=== PATIENT | female | born 1995 | race Caucasian/White ===

== ENCOUNTER 2024-03-28 22:38 | Inpatient (IN) | payer OTHER ==
[~2024-03-28] VITALS: Ht 157.5 cm; Wt 53.5 kg
[2024-03-28 22:50] VITALS: BP 116/61; PULSE 78; RESP 18; TEMP 98.1; O2SAT 100
[2024-03-28 23:36] VITALS: O2SAT 99
[2024-03-28 23:39] LABS: APPEARANCE,URINE CLEAR (CLEAR); BILIRUBIN,URINE NEGATIVE (NEGATIVE); BLOOD, URINE TRACE-I (NEGATIVE); COLOR,URINE YELLOW (YELLOW); LEUKOCYTE ESTERASE ,URINE TRACE (NEGATIVE); NITRITE, URINE NEGATIVE (NEGATIVE); PH,URINE 7.5 (5.0-9.0); PROTEIN,URINE NEGATIVE (NEGATIVE); UGLUCOSE NEGATIVE (NEGATIVE); UROBILINOGEN,URINE 0.2 EU/dL (0.2 - 1)
[2024-03-28 23:53] LABS: BASOPHILS % (AUTO) 0.3 % (0.0-2.0); EOSINOPHILS % (AUTO) 0.1 % (0.0-4.0); HEMATOCRIT 42.4 % (36-48); LYMPHOCYTES % (AUTO) 7.6 % (20.5-51.1); MEAN CORPUSCULAR HEMOGLOBIN 30 pg (27-31); MEAN CORPUSCULAR HGB CONC 33 g/dL (33-37); MEAN CORPUSCULAR VOLUME 89.7 fL (80-94); MONOCYTES # (AUTO) 0.6 K/uL (0.8-1.0); MONOCYTES % (AUTO) 4.9 % (1.7-9.3); NEUTROPHILS # (AUTO) 11.1 K/uL (1.8-7.7); NEUTROPHILS % (AUTO) 87.1 % (42.2-75.2); PLATELET COUNT (AUTO) 292 K/uL (140-450); RED BLOOD CELL COUNT(AUTO) 4.73 MIL/uL (4.20-5.40); RED CELL DISTRIBUTION WIDTH 13.5 % (11.6-13.7); WHITE BLOOD COUNT (AUTO) 12.7 K/uL (4.8-10.8)
[2024-03-28 23:53] LABS: AMPHETAMINE, URINE NEGATIVE ng/ml (NEG <=1000); BARBITURATE, URINE NEGATIVE ng/ml (NEG <=200); BENZODIAZEPINE, URINE NEGATIVE ng/mL (NEG <=200); CANNABINOID, URINE POSITIVE ng/mL (NEG <=50); COCAINE, URINE NEGATIVE ng/mL (NEG <=300); OPIATE, URINE NEGATIVE ng/mL (NEG <=2000); PHENCYCLIDINE SCREEN,URINE NEGATIVE ng/mL (NEG <=25)
[2024-03-28 23:55] LABS: BACTERIA,URINE 2+ /HPF (None Seen); MUCUS,URINE 1+ /LPF (None Seen); WBC,URINE 0-5 /HPF (0-5)
[2024-03-29] MEDS: ONDANSETRON 4 MG/2 ML VIAL IVP ONE (00:04)
[2024-03-29] MEDS: KETOROLAC 30 MG/ML VIAL IVP ONE (00:05)
[2024-03-29] MEDS: NACL 0.9% 1,000 ML IV ONE (00:08)
[2024-03-29 00:10] LABS: ALBUMIN 4.2 g/dL (3.4-5.0); ANION GAP 14.9 (8-16); CALCIUM 9.5 mg/dL (8.5-10.1); CARBON DIOXIDE 26.4 mmol/L (21-32); CREATININE 0.7 mg/dL (0.6-1.3); POTASSIUM 3.3 mmol/L (3.5-5.1); TOTAL BILIRUBIN 0.5 mg/dL (0.0-1.0); TOTAL PROTEIN, SERUM 8.7 g/dL (6.4-8.2)
[2024-03-29] MEDS: MORPHINE SULFATE 4 MG/ML SYR IVP ONE (00:57)
[2024-03-29 01:41] VITALS: O2SAT 97
[2024-03-29] MEDS ORDERED: cefTRIAXone 1,000 MG VIAL ONE ×2 (02:05→02:49)
[2024-03-29] MEDS ORDERED: KCL 20 MEQ IN 100 mL PREMIX 200 ML IV PRN (02:15)
[2024-03-29] MEDS: NACL 0.9% 1,000 ML IV SCH (02:15)
[2024-03-29] MEDS ORDERED: MAGNESIUM OXIDE 400 MG TAB PO PRN (02:15)
[2024-03-29] MEDS ORDERED: MAG SULF 2000 MG/WATER PREMIX 50 ML IV PRN (02:15)
[2024-03-29] MEDS ORDERED: ACETAMINOPHEN 325 MG TAB PO PRN (02:15)
[2024-03-29] MEDS: MORPHINE SULFATE 4 MG/ML SYR IVP PRN (03:21)
[2024-03-29] MEDS: ONDANSETRON 4 MG/2 ML VIAL IVP PRN (03:39)
[2024-03-29 04:01] VITALS: O2SAT 98
[2024-03-29] MEDS: HYDROcodone/APAP 5/325 MG 1 TAB TAB PO PRN (04:29)
[2024-03-29] MEDS: HALOPERIDOL IM 5 MG/ML VIAL IM ONE (05:36)
[2024-03-29] MEDS: POTASSIUM CHLORIDE 10 MEQ TABER PO PRN (07:42)
[2024-03-29] MEDS: DOCUSATE SODIUM 100 MG GELCAP PO SCH (08:34)
[2024-03-29 10:01] VITALS: PULSE 67; RESP 18; O2SAT 97
[2024-03-29 10:18] VITALS: BP 134/71; PULSE 67; RESP 18; TEMP 97.3; O2SAT 97
[2024-03-29] MEDS ORDERED: CEPH-588 PO (15:14)
[2024-03-29] MEDS ORDERED: [UNRECOGNIZED DRUG - CODE] PO (15:18)
[2024-03-29] MEDS ORDERED: tylenol (15:18)
[2024-03-29 15:47] VITALS: BP 134/71; PULSE 67; RESP 18; TEMP 97.3
[2024-03-29] MEDS ORDERED: MEDS-TO-BEDS MC SCH (21:00)
== END 2024-03-29 16:37 | disposition home or self-care (01) | DRG 249 ==
LOC: MED 22:38 → MTU 03-29 02:41
PROVIDERS: ADMIT Hospitalist; ATTEND Hospitalist
DX: K52.9 Noninfective gastroenteritis and colitis, unspecified (principal); F12.929 Cannabis use, unspecified with intoxication, unspecified; K59.00 Constipation, unspecified; J45.909 Unspecified asthma, uncomplicated; Z88.8 Allergy status to other drugs, medicaments and biological substances; N39.0 Urinary tract infection, site not specified
CPT/HCPCS: 36415; 76856; 80053; 80305; 81001; 83690; 85025; 87081; 87086; 87186; 96361; 96365; 96372; 96375; 96376; 99285; J0696; J1630; J1644; J1885; J2270; J2405; J7060; Q0092